=== PATIENT | female | born 2000 | race Caucasian/White ===

== ENCOUNTER 2024-04-14 14:04 | Outpatient (CLI) | payer BC, SELFPAY ==
[2024-04-14 19:13] LABS: Bacterial Vaginosis* POSITIVE (Negative); Candida glab/krus NOT DETECTED (No Detected); Candida species NOT DETECTED (No Detected); Trichomonas vaginalis NOT DETECTED (No Detected)
[2024-04-14 19:44] LABS: Chlamydia DNA Amplified* NOT DETECTED (No Detected); GC DNA Amplified* NOT DETECTED (No Detected)
[2024-04-20 15:12] LABS: Pap Test Reviewed by Path Done
== END 2024-04-14 14:05 | disposition home or self-care (01) ==
PROVIDERS: Visit Provider Registered Nurse
DX: Z11.3 Encounter for screening for infections with a predominantly sexual mode of transmission (principal); Z12.4 Encounter for screening for malignant neoplasm of cervix
CPT/HCPCS: 81513; 87481; 87491; 87591; 87624; 87625; 87661; 88141; 88142

== ENCOUNTER 2024-04-17 11:00 | Outpatient (CLI) | payer BC, SELFPAY ==
--- NOTE | 2024-04-17 11:15 | CRLHL7_ITS ---
For Patients: As a result of the Century Cures Act, medical imaging exams and procedure reports are released immediately into your electronic medical record. You may view this report before your referring provider. If you have questions, please contact your health care provider. LEFT BREAST ULTRASOUND CLINICAL HISTORY: LEFT breast lump. COMPARISON: None. TECHNIQUE: Real-time ultrasound imaging of LEFT breast with imaging documentation. FINDINGS: Targeted LEFT breast ultrasound performed in the area of concern at 12 o`clock 3 cm from the nipple. In this location, there is a circumscribed solid hypoechoic mass measuring 3.4 x 1.9 x 3.3 cm. No suspicious internal vascularity. No distal acoustic shadowing. IMPRESSION: Solid mass LEFT breast 12 o`clock 3 cm from the nipple measuring 3.4 cm, most consistent with fibroadenoma. RECOMMENDATIONS: Surgical excision should be considered given its size. A lay language report of this examination will be provided to the patient. BI-RADS Category 2: Benign Dictated by Chay Rodriguez MD @ 04/17/2024 12:06:19 PM jj/Dictated by: Chay Rodriguez MD @ 04/17/2024 12:06:00 PM (Electronically Signed)
== END 2024-04-17 11:01 | disposition home or self-care (01) ==
LOC: US 11:01
PROVIDERS: Visit Provider Registered Nurse
DX: N63.20 Unspecified lump in the left breast, unspecified quadrant (principal)
CPT/HCPCS: 76642

== ENCOUNTER 2024-06-23 06:16 | Day surgery (SDC) | payer BC, SELFPAY ==
[2024-06-23 06:27] VITALS: BMI 31.6
[2024-06-23] MEDS: SODIUM CHLORIDE 0.9 % (FLUSH) 10 ML SYRINGE IVF (06:45)
[2024-06-23 06:47] LABS: Ur HCG Qualitative* Negative (Negative)
[2024-06-23 06:52] VITALS: BP 128/91; PULSE 115; RESP 18; TEMP 37.8; O2SAT 97
[2024-06-23] MEDS: 0.9 % SODIUM CHLORIDE 500 ML 500 ML 100 ML IV (07:02)
[2024-06-23] MEDS: CEFAZOLIN 2 GM INJ IVP (07:35)
[2024-06-23] MEDS: LIDOCAINE 1% MDV 4 ML INJECTION (07:49)
[2024-06-23] MEDS: BUPIVACAINE 0.25% 30 ML 4 ML INJECTION (07:49)
[2024-06-23] MEDS: BACITRACIN OINTMENT BULK TUBE 1 APPLIC TOPICAL (08:08)
--- NOTE | 2024-06-23 08:11 | P.GSHP_ITS ---
History of Present Illness History of Present Illness Date Seen: 06/23/24 Chief complaint: Left Breast Excision Narrative: Linda Killian is a 24 year old female who presents for excision of a left breast mass. Imaging findings consistent with fibroadenoma. Patient denies any changes to her symptoms. No changes to her medical history or medications. Review of Systems Status of ROS: Reports: 10 or more systems reviewed and unremarkable except as noted in History and below PFSH PFSH Surgical History H/O wisdom tooth extraction ?K08.409 - Partial loss of teeth, unspecified cause, unspecified class (ICD- 10) Family History Grandmother Ovarian cancer Skin cancer Family/Other Ovarian cancer Heart disease Colon cancer Thyroid disease Grandfather High blood pressure High cholesterol Diabetes Lymphoma Other Alcohol dependence FH: mental illness Social History What is your current living situation?: I presently have a place to live Problems where you live: no known problems In the past 12 months, utilities in danger of being shut off: no In past 12 months, lack of transportation kept you from medical appts, meetings, work, or getting things needed for daily living: no In the past 12 mos, have been you worried that your food would run out before you had money to buy more?: never true In the past 12 mos, the food you bought just didn't last and you didn't have money to buy more?: never true Smoking Status: Current every day smoker Do you use any of these nicotine containing products: Vaping Products Nicotine containing products detail: vapes every day How often do you have a drink containing alcohol: 2-4 times a month How often do you have six or more drinks on one occasion: Never AUDIT-C Alcohol total score: 2 Non-prescribed substance use: denies use Caffeine: Yes (daily soda, some coffee) How often does anyone, including family, friends and others, physically hurt you : never How often does anyone, including family, friends and others, insult or talk down to you: never How often does anyone, including family, friends and others, threaten you with harm: never How often does anyone, including family, friends and others, scream or curse at you: never Are you using contraception or practicing any form of control: No Meds Home Medications and Allergies Home Medications ?Medication ?Instructions ?Recorded ?Confirmed ?Type norgestimate-ethinyl estradiol 1 tab PO DAILY 04/14/24 06/23/24 History 0.18 mg/0.215mg/0.25mg-35 mcg(28)tablet Allergies Allergy/AdvReac Type Severity Reaction Status Date / Time No Known Drug Allergies Allergy Verified 06/23/24 06:25 Exam Narrative: Exam Narrative: General: Alert and oriented, no acute distress Respiratory: Clear breath sounds bilaterally, maintained on room air CV: Regular rhythm and rate Breast: Left breast mass, mobile, nontender with no overlying skin changes, proximally 3 cm at 12:00 o'clock. Const: Vital Signs, click to edit/add: Vital Signs - 24 hr 06/23/24 06:52 Temperature 100.0 F H Pulse Rate 115 H Respiratory Rate 18 Blood Pressure 128/91 H Pulse Oximetry 97 Oxygen Delivery Me thod Room Air Progress Note:A&P Assessment and plan (1) Breast mass, left: Status: Acute Assessment and Plan: Patient presents for excision of left breast mass. No further workup needed. This document to serve as updated preoperative history and physical.
--- NOTE | 2024-06-23 08:13 | PM.GSPRC ---
Operative Note Date of procedure: 06/23/24 Pre-op diagnosis: Left breast fibroadenoma Post-op diagnosis: Same Type of Procedure: Excision of left breast mass Indications: Patient is a 24-year-old female who presents with a mass of the left breast. Please see consultation note for full discussion regarding different treatment options. Risks and benefits of operative intervention were discussed at length with the patient. Risks included but was not limited to: Bleeding, infection, risk of damage to surrounding structures, possible need for additional procedures and postoperative complications such as pneumonia, pulmonary emboli or OR. All questions and concerns were addressed with the patient agreeing to proceed. Procedure Description: After discussing the risks and benefits of the procedure, the patient signed informed consent.? The operative site was marked and the patient was brought to the operating room and placed on the operating table in supine position.? Care was taken to pad the patient's pressure points.?? The patient was then given sedation by anesthesia.?? The operative site was then prepped and draped in the usual sterile fashion.? A time-out was then performed. The mass was easily palpated in the left breast. Local anesthesia was infiltrated into a curvilinear incision in the left breast at the 12 o'clock position. Using electrocautery dissection was carried through to the welling capsulated mass. It was freed circumferentially and able to be removed in 1 piece. It was sent to pathology for permanent evaluation. The wound was irrigated and all irrigant suctioned from the wound. Additional local anesthesia was infiltrated. The wounds were then closed in layers using absorbable suture, and Dermbond was placed over the wounds. The patient was awakened without incident and taken to PACU in stable condition. Sponge, needle and instrument counts were correct x3 at the termination of the case. Findings: Fibroadenoma of the left breast, 4 cm at its largest. Anesthesia: MAC and local Surgeon: Jenny Valles MD Estimated blood loss (mL): 5 Additional Specimen Information: Left breast fibroadenoma Condition: stable Disposition: same day
[2024-06-23 08:20] VITALS: BP 115/63; PULSE 79; RESP 16; TEMP 37.6; O2SAT 92
--- NOTE | 2024-06-23 08:21 | P.ANES_ITS ---
Anesthesia Charges Start Date/Time Anesthesia Start Date: 06/23/24 Anesthesia Start Time: 07:30 Stop Date/Time Anesthesia Stop Date: 06/23/24 Anesthesia Stop Time: 08:22 Coding CPT Codes CPT Codes: ANESTH SKIN EXT/PER/ATRUNK - 55019 ([id number]) P2 - PATIENT W/MILD SYST DISEASE, QK - BRICK SORTER 2-4 CNCRNT ANES PROC, QX - FOUNTAIN HELPER SVC W/ MD MED DIRECTION
--- NOTE | 2024-06-23 08:21 | W.ANESCHARGE ---
Anesthesia Charges Start Date/Time Anesthesia Start Date: 06/23/24 Anesthesia Start Time: 07:30 Stop Date/Time Anesthesia Stop Date: 06/23/24 Anesthesia Stop Time: 08:22 Coding CPT Codes CPT Codes: ANESTH SKIN EXT/PER/ATRUNK - 70418 ([id number]) P2 - PATIENT W/MILD SYST DISEASE, QK - SALES ASSOCIATE KEY HOLDER 2-4 CNCRNT ANES PROC, QX - FIXTURE FABRICATOR REPAIRER SVC W/ MD MED DIRECTION
--- NOTE | 2024-06-23 08:26 | SUR.OPER ---
PATIENT QUESTIONS ANSWERED SATISFACTORILY PREOPERATIVELY. PATIENT BROUGHT TO OR #1 PER CART. Patient positioned supine on OR #1 bed. The perioperative team supported arms bilaterally on arm boards. Final approval of positioning by surgeon.
--- NOTE | 2024-06-23 08:33 | P.ANES_ITS ---
Anesthesia Charges Start Date/Time Anesthesia Start Date: 06/23/24 Anesthesia Start Time: 07:30 Stop Date/Time Anesthesia Stop Date: 06/23/24 Anesthesia Stop Time: 08:22 Coding CPT Codes CPT Codes: ANESTH SKIN EXT/PER/ATRUNK - 73151 ([id number]) QK - RESIDENTIAL ROOFER HELPER 2-4 CNCRNT ANES PROC, QX - TRAVEL TICKETING REVIEWER SVC W/ MD MED DIRECTION, P2 - PATIENT W/MILD SYST DISEASE
--- NOTE | 2024-06-23 08:33 | W.ANESCHARGE ---
Anesthesia Charges Start Date/Time Anesthesia Start Date: 06/23/24 Anesthesia Start Time: 07:30 Stop Date/Time Anesthesia Stop Date: 06/23/24 Anesthesia Stop Time: 08:22 Coding CPT Codes CPT Codes: ANESTH SKIN EXT/PER/ATRUNK - 62570 ([id number]) QK - TAILER OFF 2-4 CNCRNT ANES PROC, QX - ETL APPLICATION DEVELOPER SVC W/ MD MED DIRECTION, P2 - PATIENT W/MILD SYST DISEASE
[2024-06-23 08:35] VITALS: BP 113/60; PULSE 77; RESP 16; O2SAT 96
[2024-06-23 08:50] VITALS: BP 111/70; PULSE 81; RESP 16; O2SAT 96
[2024-06-23 09:05] VITALS: BP 112/65; PULSE 75; RESP 16; TEMP 36.8; O2SAT 95
== END 2024-06-23 09:15 | disposition home or self-care (01) ==
PROVIDERS: Anesthesiology; Visit Provider Surgery
PROC: (CPT 19120; principal; 2024-06-23 07:30)
DX: D24.2 Benign neoplasm of left breast (principal)
CPT/HCPCS: 19120; 00400; 81025; J2003; J0665; J0690; J1100; J2250; J2405; J2704; J3010; J7030